=== PATIENT | male | born 1950 | race American Indian/Alaskan Native ===

== ENCOUNTER 2018-09-19 18:24 | Emergency (ER) | payer MEDICARE ==
[2018-09-19] MEDS ORDERED: CATAPRES PO ONE (18:49)
--- NOTE | 2018-09-19 18:54 | Emergency Department Report ---
ED General Adult HPI - General Chief complaint: Weakness Stated complaint: WEAKNESS Time Seen by Provider: 09/19/18 18:42 Source: patient, EMS Mode of arrival: Stretcher Limitations: No Limitations - History of Present Illness Initial comments: Patient is 67-year-old male with history of CVA, left sided weakness individual, hypertension and diabetes and early dementia. Patient brought to the emergency room via EMS for evaluation of generalized weakness. Patient stated that his symptom is been going on for more than one year but is progressively getting worse. Patient stated that he and his family moved to a new home with a before meals is not working and it was hot and today. Patient denied any chest pain, shortness of breath, headache, neck pain, numbness tingling sensation, nausea or vomiting. Patient also denied any abdominal pain. - Related Data Allergies Allergy/AdvReac Type Severity Reaction Status Date / Time No Known Allergies Allergy Unverified 11/27/17 21:02 ED Review of Systems ROS: Stated complaint: WEAKNESS Other details as noted in HPI Comment: All other systems reviewed and negative Constitutional: denies: chills, fever Respiratory: denies: cough, shortness of breath, SOB with exertion, SOB at rest Cardiovascular: denies: chest pain, palpitations, dyspnea on exertion, orthopnea Gastrointestinal: denies: abdominal pain, nausea, vomiting, diarrhea, constipation, hematemesis, melena, hematochezia Genitourinary: denies: urgency, dysuria, frequency, hematuria, discharge Musculoskeletal: denies: back pain Skin: denies: rash, lesions Neurological: weakness (generalized). denies: numbness, paresthesias, confusion, abnormal gait, vertigo ED Past Medical Hx - Past Medical History Previous Medical History?: Yes Hx Hypertension: Yes Hx CVA: Yes Hx Congestive Heart Failure: No Hx Diabetes: Yes Hx Asthma: No Hx COPD: No Hx Dementia: Yes - Social History Smoking Status: Never Smoker Substance Use Type: None ED Physical Exam - General Limitations: No Limitations General appearance: alert, in no apparent distress - Head Head exam: Present: atraumatic, normocephalic, normal inspection - Eye Eye exam: Present: normal appearance, PERRL - ENT ENT exam: Present: normal exam, normal orophraynx, mucous membranes moist - Neck Neck exam: Present: normal inspection, full ROM. Absent: tenderness, meningismus, lymphadenopathy, thyromegaly - Respiratory Respiratory exam: Present: normal lung sounds bilaterally - Cardiovascular Cardiovascular Exam: Present: regular rate, normal rhythm, normal heart sounds - GI/Abdominal GI/Abdominal exam: Present: soft, normal bowel sounds. Absent: distended, tenderness, guarding, rebound, rigid, organomegaly, mass, bruit, pulsatile mass, hernia - Extremities Exam Extremities exam: Present: normal inspection, normal capillary refill. Absent: calf tenderness - Back Exam Back exam: Present: normal inspection, full ROM. Absent: tenderness, CVA tenderness (R), CVA tenderness (L), muscle spasm, paraspinal tenderness, vertebral tenderness - Neurological Exam Neurological exam: Present: alert, oriented X3, CN II-XII intact, motor sensory deficit (left upper and lower extremity weakness which is chronic.) - Psychiatric Psychiatric exam: Present: normal mood - Skin Skin exam: Present: warm, intact, normal color ED Course Vital Signs 09/19/18 09/19/18 09/19/18 18:20 18:30 18:32 Temperature 98.7 F Pulse Rate 79 81 Respiratory 14 16 Rate Blood Pressure 161/87 Blood Pressure 174/97 [Left] O2 Sat by Pulse 96 99 97 Oximetry 09/19/18 09/19/18 09/19/18 18:45 19:00 19:15 Temperature Pulse Rate 85 85 79 Respiratory 12 14 12 Rate Blood Pressure 184/109 184/109 187/102 Blood Pressure [Left] O2 Sat by Pulse 98 96 97 Oximetry 09/19/18 09/19/18 09/19/18 19:30 19:46 20:00 Temperature Pulse Rate 80 76 74 Respiratory 12 12 12 Rate Blood Pressure 187/102 169/103 170/99 Blood Pressure [Left] O2 Sat by Pulse 96 98 99 Oximetry 09/19/18 09/19/18 09/19/18 20:16 20:30 20:46 Temperature Pulse Rate 74 74 77 Respiratory 12 11 L 12 Rate Blood Pressure 171/95 182/102 166/96 Blood Pressure [Left] O2 Sat by Pulse 98 98 97 Oximetry 09/19/18 09/19/18 09/19/18 21:00 21:15 21:30 Temperature Pulse Rate 75 76 73 Respiratory 11 L 15 14 Rate Blood Pressure 167/92 176/108 163/92 Blood Pressure [Left] O2 Sat by Pulse 97 94 96 Oximetry ED Medical Decision Making - Lab Data Result diagrams: 09/19/18 19:06 09/19/18 19:06 - EKG Data -: EKG Interpreted by Me EKG shows normal: sinus rhythm Rate: normal - EKG Data Interpretation: no acute changes - Radiology Data Radiology results: report reviewed Chest x-ray is unremarkable. - Medical Decision Making Patient is 67-year-old male with history of CVA, left sided weakness individual, hypertension and diabetes and early dementia. Patient brought to the emergency room via EMS for evaluation of generalized weakness. Patient stated that his symptom is been going on for more than one year but is progressively getting worse. Patient stated that he and his family moved to a new home with a before meals is not working and it was hot and today. Patient denied any chest pain, shortness of breath, headache, neck pain, numbness tingling sensation, nausea or vomiting. Patient also denied any abdominal pain. Patient remained stable in the ER was no acute distress. Patient labs reviewed and is unremarkable except for slightly elevated CK which may be due to heat exhaustion since he was complaining of AC is not working. Patient found to have a high blood pressure treated with clonidine. Patient advised to follow-up with his primary care physician in the next 2-3 days and to return to the ER if symptoms are not improved. Critical care attestation.: If time is entered above; I have spent that time in minutes in the direct care of this critically ill patient, excluding procedure time. ED Disposition Clinical Impression: Malignant hypertension, Heat exhaustion Disposition: DC-01 TO HOME OR SELFCARE Is pt being admited?: No Condition: Stable Instructions: Hypertension (ED) Referrals: MECHELLE WILSON MD [Primary Care Provider] - 3-5 Days
[2018-09-19 19:20] LABS: Basophils % (Auto) 0.8 % (0.0-1.8); Eosinophils # (Auto) 0.2 K/mm3 (0.0-0.4); Eosinophils % (Auto) 3.4 % (0.0-4.3); Hematocrit 37.7 % (35.5-45.6); Hemoglobin 12.5 gm/dl (11.8-15.2); Lymphocytes # (Auto) 1.2 K/mm3 (1.2-5.4); Lymphocytes % (Auto) 22.9 % (13.4-35.0); Mean Corpuscular HGB Conc 33 % (32-34); Mean Corpuscular Volume 88 fl (84-94); Monocytes # (Auto) 0.8 K/mm3 (0.0-0.8); Monocytes % (Auto) 14.7 % (0.0-7.3); Platelet Count 198 K/mm3 (140-440); Red Blood Count 4.27 M/mm3 (3.65-5.03); Red Cell Distribution Width 13.7 % (13.2-15.2)
[2018-09-19 20:03] LABS: Alanine Aminotransferase 22 units/L (7-56); Albumin 3.7 g/dL (3.9-5)
[2018-09-19 20:04] LABS: BUN/Creatinine Ratio 20; Blood Urea Nitrogen 14 mg/dL (9-20); Calcium 9.3 mg/dL (8.4-10.2); Hemolysis Index 2
[2018-09-19 20:09] LABS: Bilirubin,Direct < 0.2 mg/dL (0-0.2)
[2018-09-19] MEDS ORDERED: NACL 0.9% 500 ML 500 ML IV ONE (20:26)
--- NOTE | 2018-09-19 20:46 | XRay Report ---
PROCEDURE: XR CHEST 1V AP TECHNIQUE: Chest radiograph single view. HISTORY: Weakness COMPARISONS: None . FINDINGS: Heart: Normal. Mediastinum/Vessels: Normal. Lungs/Pleural space: Normal. Bony thorax: No acute osseous abnormality. Life support devices: None. IMPRESSION: No acute cardiopulmonary abnormality. This document is electronically signed by Kevin Barger MD., September 19 2018 09:43:54 PM ET
[2018-09-19] MEDS ORDERED: CATAPRES ONE (20:56)
[2018-09-19 21:22] LABS: Bacteria,Urine 1+ /HPF (Negative); Bilirubin,Urine NEG (Negative); Blood,Urine NEG (Negative); Color,Urine Yellow (Yellow); Mucus,Urine FEW /HPF; Protein,Urine <15 mg/dL mg/dL (Negative); Sperm,Urine FEW /HPF (NP); Urobilinogen,Urine < 2.0 mg/dL (<2.0); WBC,Urine < 1.0 /HPF (0.0-6.0)
[2018-09-19 21:43] VITALS: BP 163/92
== END 2018-09-20 00:53 | disposition home or self-care (01) ==
LOC: ED 18:24
DX: T67.5XXA Heat exhaustion, unspecified, initial encounter (principal); I10 Essential (primary) hypertension; E11.9 Type 2 diabetes mellitus without complications; X30.XXXA Exposure to excessive natural heat, initial encounter; Y93.89 Activity, other specified; Y92.89 Other specified places as the place of occurrence of the external cause; Y99.8 Other external cause status
CPT/HCPCS: 36415; 71045; 80048; 80076; 81001; 82550; 84484; 85025; 93005; 93010; 99285

== ENCOUNTER 2018-09-21 18:21 | Emergency (ER) | payer MEDICARE ==
[2018-09-21] MEDS ORDERED: NORVASC PO ONE (19:11)
--- NOTE | 2018-09-21 19:13 | Emergency Department Report ---
ED General Adult HPI - General Chief complaint: Fall Stated complaint: FALL Time Seen by Provider: 09/21/18 19:01 Source: patient, EMS (ems notes not available at time of chart dictation), RN notes reviewed, old records reviewed Mode of arrival: Stretcher Limitations: Physical Limitation - History of Present Illness Initial comments: This is a 67-year-old gentleman. His past medical history includes stroke, left-sided weakness, hypertension, possible early dementia. Patient was seen in this hospital 2 days ago for general medical evaluation. He had an extensive workup done, including laboratory studies, and urinalysis. No acute or emergent findings were noted, and he was discharged with a diagnosis of hypertension, possible heat exhaustion, and instructions to follow-up in outpatient primary care doctor. Today, the patient presents to the emergency room with a complaint of hypertension. He believes that his blood pressure is high. He indicates he is checking his blood pressure at home, but he can't recall the numerical value. He states he is taking his blood pressure medication, but can't recall the names of his medications. He reports that he lives at home with his child in law, and other family members. He denies headache, neck pain, chest pain, abdominal pain, shortness of breath. He reports 1-2 mechanical falls earlier on today. He states he was in the living room while the child was playing video games on the TV. He did not trip over any object recall. -: Sudden Consistency: now resolved Improves with: none Worsens with: none Associated Symptoms: denies other symptoms - Related Data Previous Rx's Medication Instructions Recorded Last Taken Type amLODIPine [Norvasc] 5 mg PO DAILY #30 tab 09/19/18 Unknown Rx Allergies Allergy/AdvReac Type Severity Reaction Status Date / Time No Known Allergies Allergy Unverified 11/27/17 21:02 ED Review of Systems ROS: Stated complaint: FALL Other details as noted in HPI Constitutional: denies: fever Eyes: denies: eye discharge Respiratory: denies: cough Cardiovascular: denies: chest pain Gastrointestinal: denies: abdominal pain Genitourinary: denies: dysuria Musculoskeletal: denies: back pain Neurological: weakness (chronic left-sided weakness). denies: headache ED Past Medical Hx - Past Medical History Previous Medical History?: Yes Hx Hypertension: Yes Hx CVA: Yes Hx Congestive Heart Failure: No Hx Diabetes: Yes Hx Asthma: No Hx COPD: No Hx Dementia: Yes - Social History Smoking Status: Never Smoker Substance Use Type: None - Medications Home Medications: Home Medications Medication Instructions Recorded Confirmed Last Taken Type amLODIPine [Norvasc] 5 mg PO DAILY #30 tab 09/19/18 Unknown Rx ED Physical Exam - General Limitations: Physical Limitation General appearance: alert, in no apparent distress - Head Head exam: Present: atraumatic, normocephalic - Eye Eye exam: Present: normal appearance, EOMI, other (bilateral arcus senilis noted/ visual acuity intact bilaterally to color perception, finger counting at a close distance). Absent: nystagmus - ENT ENT exam: Present: normal exam, normal orophraynx, mucous membranes moist, normal external ear exam - Neck Neck exam: Present: normal inspection, full ROM. Absent: tenderness, meningismus - Respiratory Respiratory exam: Present: normal lung sounds bilaterally. Absent: respiratory distress - Cardiovascular Cardiovascular Exam: Present: regular rate, normal rhythm, normal heart sounds. Absent: bradycardia, tachycardia, irregular rhythm, systolic murmur, diastolic murmur, rubs, gallop - GI/Abdominal GI/Abdominal exam: Present: soft. Absent: distended, tenderness, guarding, rebound, rigid, pulsatile mass - Rectal Rectal exam: Present: deferred - Extremities Exam Extremities exam: Present: normal inspection, other (2+ pulses noted in the bilateral upper, lower extremities. Compartments soft. No long bony tenderness. The pelvis is stable.). Absent: tenderness, calf tenderness - Back Exam Back exam: Present: normal inspection - Neurological Exam Neurological exam: Present: alert, motor sensory deficit (there is 4 out of 5 strength left arm and left leg. There is decreased sensation to light touch left arm, left leg. There is 5 out of 5 strength right arm and right leg. Sensation is intact to light touch right arm, right leg.), other (there is no facial droop. The tongue is midline. Extraocular movements are intact bilaterally. The patient is speaking in full sentences.) - Psychiatric Psychiatric exam: Present: normal affect, normal mood - Skin Skin exam: Present: warm, dry, intact, normal color. Absent: rash ED Course Vital Signs 09/21/18 09/21/18 09/21/18 18:32 18:41 19:00 Temperature 97.4 F L Pulse Rate 70 64 Respiratory 14 12 Rate Blood Pressure 194/102 204/99 O2 Sat by Pulse 97 100 97 Oximetry 09/21/18 09/21/18 09/21/18 19:37 19:39 20:01 Temperature Pulse Rate 78 71 Respiratory 16 18 Rate Blood Pressure 203/107 179/104 O2 Sat by Pulse 97 96 Oximetry 09/21/18 09/21/18 22:00 23:00 Temperature Pulse Rate 74 71 Respiratory 13 12 Rate Blood Pressure 184/99 162/81 O2 Sat by Pulse 96 97 Oximetry - Reevaluation(s) Reevaluation #1: 09/21/18 20:23 Differential diagnosis, including not limited to, deconditioning, mechanical fall, intracranial injury, cervical spine injury, chronic hypertension Assessment and plan: 67-year-old gentleman, with complaint of painless hypertension, and reported mechanical fall. His examination today appears to be unchanged from her prior examination performed at this hospital 2 days ago. He is hypertensive, but otherwise has reassuring vital signs. He does not require emergent D escalation of his hypertension, please reference the [employer] clinical policy of hypertension which is not acutely symptomatic. X-ray of the pelvis is ordered, case measured consult is ordered, CT scan of the brain, cervical spine ordered. The patient will need to follow-up with an outpatient primary care doctor. He may benefit from physical therapy and rehabilitation, we will defer case management to further follow this up. Reevaluation #2: 09/21/18 22:15 Patient resting comfortably. Patient in no acute distress. Blood pressure improved. X-ray of the pelvis is negative. Noncontrast CT scan of the cervical spine is pending. CT scan of the brain is pending interpretation. Reevaluation #3: 09/22/18 00:52 Patient resting comfortably, and in no acute distress. CT scan of the cervical spine negative for acute traumatic disease. Blood pressure is improved. Please note that there was a significant delay in patient's ultimate disposition as the remote radiology group, [facility], was experiencing significant technical difficulties, which resulted in the delay in CT interpretation. Nevertheless, the patient's does not have an objectively demonstrated emergent medical condition that requires hospitalization at this time. He is medically suitable to follow up with an outpatient primary care doctor. An outpatient case management consult has been requested to determine if the patient is eligible for home resources, physical therapy. ED Medical Decision Making - Lab Data Vital Signs 09/21/18 09/21/18 09/21/18 18:41 19:37 19:39 Temperature 97.4 F L Pulse Rate 70 78 Respiratory 14 16 Rate Blood Pressure 194/102 203/107 O2 Sat by Pulse 100 97 Oximetry - Radiology Data Radiology results: pending Critical care attestation.: If time is entered above; I have spent that time in minutes in the direct care of this critically ill patient, excluding procedure time. ED Disposition Clinical Impression: Hypertension, History of fall Disposition: DC-01 TO HOME OR SELFCARE Is pt being admited?: No Does the pt Need Aspirin: No Condition: Stable Instructions: Hypertension (ED) Additional Instructions: Continue current outpatient medications. Follow up with a primary care doctor within the next 7-10 days. Please note that patient was found to have elevated blood pressure while here in the emergency room. This should be followed up closely. Long-term complications of hypertension and elevated blood pressure include stroke, heart attack, disability, paralysis, loss of quality of life. Please return to the emergency room right away with new, worsening or different symptoms or symptoms not present on the initial emergency room evaluation. Referrals: MECHELLE WILSON MD [Primary Care Provider] - 7-[address] [facility] [Provider Group] - 3-5 Days
--- NOTE | 2018-09-21 20:43 | Cat Scan Report ---
PROCEDURE: CT HEAD/BRAIN WO CON TECHNIQUE: Computerized tomography of the head was performed without contrast material. CT DOSE LENGTH PRODUCT: mGycm HISTORY: fall COMPARISONS: None . FINDINGS: Limited study due to motion artifacts. Irregular areas of encephalomalacia are noted in the left fron neil, bilateral parietal and right parieto-occipital regions. Old lacunar infarcts are noted involving bilateral basal ganglia. An acute intra-axial or extra-axial hemorrhage or mass effect is not identi fied. Supratentorial and infratentorial CSF spaces are prominent consistent with cerebral atrophy olya ropriate for patient's age. Atherosclerotic calcification is noted involving internal carotid and shahzad tebral arteries. Paranasal sinuses and mastoid air cells are clear. Bones are intact. Scalp is unrema rkable. IMPRESSION: No acute intracranial abnormality Old lacunar infarcts bilateral basal ganglia Multiple areas of encephalomalacia involving bilateral cerebral hemispheres are most likely secondary to old infarcts or hemorrhages. This document is electronically signed by Layo Brown MD., September 21 2018 08:41:12 PM ET
--- NOTE | 2018-09-21 21:32 | XRay Report ---
PROCEDURE: XR PELVIS 1-2V TECHNIQUE: AP view of the pelvis HISTORY: fall COMPARISONS: None . FINDINGS: No evidence for acute fracture or dislocation is seen. There is mild narrowing superior hip joints wi th sclerosis of the superior acetabular margins consistent with osteoarthritis. Sacroiliac joints are normal. The soft tissues are unremarkable. Bony mineralization is normal. IMPRESSION: No acute soft tissue or bony abnormality noted in pelvis. Mild bilateral osteoarthritis This document is electronically signed by Kalyn Mead MD., September 21 2018 09:30:36 PM ET
--- NOTE | 2018-09-22 00:30 | Cat Scan Report ---
PROCEDURE: CT CERVICAL SPINE WO CON TECHNIQUE: Computerized tomography of the cervical spine was performed from the skull base to T1 wit hout contrast material. CT DOSE LENGTH PRODUCT: mGycm HISTORY: fall COMPARISONS: None . FINDINGS: The skull base and foramen magnum are intact. Cervical vertebrae are intact. There are no fractures o r malalignments. There are multilevel degenerative disc and facet changes. There is no facet dislocat ion. There is no prevertebral soft tissue swelling. IMPRESSION: No significant abnormality . This document is electronically signed by Kevin Barger MD., September 21 2018 11:30:04 PM ET
[2018-09-22] MEDS ORDERED: HCTZ PO ONE (14:26)
[2018-09-22] MEDS ORDERED: NORVASC PO ONE (17:07)
[2018-09-22 19:18] VITALS: BP 139/68
== END 2018-09-22 19:18 | disposition home or self-care (01) ==
LOC: ED 18:21
DX: I10 Essential (primary) hypertension (principal); E11.9 Type 2 diabetes mellitus without complications; F03.90 Unspecified dementia, unspecified severity, without behavioral disturbance, psychotic disturbance, mood disturbance, and anxiety; I63.9 Cerebral infarction, unspecified; Z91.81 History of falling
CPT/HCPCS: 70450; 72125; 72170